=== PATIENT | female | born 1970 | race Caucasian/White ===

== ENCOUNTER 2017-12-04 13:12 | Emergency (ER) | payer OTHER ==
--- OUTSIDE RECORDS SUMMARY | 2017-12-04 13:14 | XMS REPORT | Clinical Summary ---
:1970 Author Organization [facility] Address [address] [place] [address] Care Team Providers Name Role Phone Santino Kaur MD Primary Care Provider Allergies Active Allergy Reactions Severity Noted Date Comments No Known Drug Allergies 01/06/2016 Current Medications Prescription Sig. Disp. Refills Start Date End Date Status estradiol (ESTRACE) 0.5 MG Take 0.5 mg by 1 05/03/2016 Active tablet mouth once daily. hydroCHLOROthiazide Take 25 mg by 5 06/02/2016 Active (HYDRODIURIL) 25 MG tablet mouth every morning. montelukast (SINGULAIR) 10 mg Take 10 mg by 5 05/26/2016 Active tablet mouth every morning. Active Problems Problem Noted Date Endometrial cancer 12/31/2015 Social History Tobacco Use Types Packs/Day Years Used Date Never Smoker Alcohol Use Drinks/Week oz/Week Comments Yes "one to two beers or a glass of wine per week" Sex Assigned at Date Recorded Not on file Last Filed Vital Signs Not on file Plan of Treatment Health Maintenance Due Date Last Done Comments CERVICAL CANCER SCREENING 06/02/2017 06/02/2014, 05/03/2013 INFLUENZA VACCINE 01/31/2018 Results Not on fileafter 12/03/2016 Insurance Payer Benefit Plan / Group Subscriber ID Type Phone Address [employer] PPO OPEN CHOICE xxxxxxxxxx PPO Work: [id number] [phone] [address] [place], [place] [address] [phone]Z Personal/Family Self 1970 Home: [address] [facility] [phone] [facility] [address] [place] [address]
[2017-12-04] MEDS ORDERED: ONDANSETRON 4 MG/2 ML VIAL ONE (13:46)
[2017-12-04] MEDS ORDERED: NA CHLORIDE 0.9% 1,000 ML ONE (13:46)
[2017-12-04] MEDS ORDERED: MORPHINE 4 MG/ML SYR ONE (13:46)
[2017-12-04 14:01] LABS: Absolute Lymphocytes (CBC) 2.6 K/uL (0.7-4.9); Absolute Monocytes 0.6 K/uL (0.1-1.3); Absolute Neutrophil 5.3 K/uL (1.8-8.0); Basophils % 0.6 % (0-1.3); Eosinophils % 2.7 % (0-4.4); Hematocrit 42.3 % (36.0-45.0); Lymphocytes % 29.5 % (15.3-44.8); MCH 27.6 pg (27.0-35.0); MCV 83.1 fL (80-100); MPV 9.1 fL (7.6-11.3); Monocytes % 6.3 % (3.3-12.3); RBC Red Blood Cell Count 5.09 M/uL (3.86-4.86)
--- NOTE | 2017-12-04 14:11 | RAD REPORT ---
EXAM DESCRIPTION: RAD - Chest Single View - 12/04/2017 2:03 pm CLINICAL HISTORY: Chest pain. COMPARISON: 10/17/2015 FINDINGS: Portable technique limits examination quality. The lungs are grossly clear. The heart is normal in size. No displaced fractures. IMPRESSION: No acute intrathoracic process suspected.
--- NOTE | 2017-12-04 14:23 | EKG ---
Test Date: 2017-12-04 Test Time: 13:29:51 Line Installer Trolley: JOSE MEASUREMENT RESULTS: Intervals: Rate: 71 WA: 150 QRSD: 94 QT: 436 QTc: 473 [place]: P: 45 WA: 150 QRS: -16 T: 76 INTERPRETIVE STATEMENTS: Sinus rhythm with premature atrial complexes Moderate voltage criteria for LVH, may be normal variant Borderline ECG No previous ECG available for comparison Electronically Signed On 12-04-17 14:22:54 CDT by Zane Puente
[2017-12-04 14:32] LABS: Bicarbonate 30 mEq/L (21-31); Glucose Level 101 mg/dL (65-120); Lipase 46 U/L (22-51); Potassium 3.4 mEq/L (3.6-5.0); Sodium Level 139 mEq/L (135-145)
[2017-12-04 14:38] LABS: ALT/SGPT 35 IU/L (10-60); AST/SGOT 34 IU/L (10-42); Albumin 4.2 g/dL (3.2-5.5); Alkaline Phosphatase 84 IU/L (42-121); BUN Blood Urea Nitrogen 10 mg/dL (6-20); Bilirubin Direct 0.1 mg/dL (0-0.2); Bilirubin Total 0.7 mg/dL (0.3-1.2); Creatine Phosphokinase 67 IU/L (22-269); Magnesium 2.3 mg/dL (1.8-2.5); Protein, Total 7.5 g/dL (6.0-8.3)
[2017-12-04 14:41] LABS: CKMB Creatine Kinase MB 1.6 ng/ml (0.3-4.0)
--- NOTE | 2017-12-04 15:13 | RAD REPORT ---
EXAM DESCRIPTION: CT - Chest For Pe Angio - 12/04/2017 2:54 pm CLINICAL HISTORY: Chest pain. COMPARISON: 09/23/2016 TECHNIQUE: CT angiogram of the pulmonary arteries was performed with MIP. All CT scans are performed using dose optimization technique as appropriate and may include automated exposure control or mA/KV adjustment according to patient size. FINDINGS: No evidence of pulmonary thromboembolism. No acute aortic finding demonstrated. The lungs are clear. No significant pericardial or pleural fluid. No concerning bony finding. Postsurgical changes are present in the upper abdomen. IMPRESSION: No evidence of pulmonary thromboembolism. No acute lung findings.
--- NOTE | 2017-12-04 15:20 | EDPHYS ---
Physician Documentation [facility] Name: Love Yarbrough Age: 47 yrs Sex: Female : 1970 Arrival Date: 12/04/2017 Time: 13:14 Bed 8 Private MD: Binu Sanchez E ED Physician Aryan Osborne HPI: 12/04 13:40 This 47 yrs old Female presents to ER via Ambulatory with complaints of Chest anant Pain, Numbness Of Arm. 13:40 The patient or guardian reports chest pain that is located primarily in the substernal anant area. Onset: just prior to arrival, this morning. The pain radiates to the left arm. Associated signs and symptoms: The patient has no apparent associated signs or symptoms. The chest pain is described as a heaviness, causing indigestion, a pressure. Severity of pain: At its worst the pain was moderate in the emergency department the pain is unchanged. The patient has not experienced similar symptoms in the past. 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 - Social history:: Smoking status: Patient/guardian denies using tobacco. - Ebola Screening: : No symptoms or risks identified at this time. - Family history:: not pertinent. ROS: 13:40 Constitutional: Negative for fever, chills, and weight loss, Eyes: Negative for injury, anant pain, redness, and discharge, ENT: Negative for injury, pain, and discharge, Neck: Negative for injury, pain, and swelling, Respiratory: Negative for shortness of breath, cough, wheezing, and pleuritic chest pain, Abdomen/GI: Negative for abdominal pain, nausea, vomiting, diarrhea, and constipation, Back: Negative for injury and pain, : Negative for injury, bleeding, discharge, and swelling, MS/Extremity: Negative for injury and deformity, Skin: Negative for injury, rash, and discoloration, Neuro: Negative for headache, weakness, numbness, tingling, and seizure, Psych: Negative for depression, anxiety, suicide ideation, homicidal ideation, and hallucinations, Allergy/Immunology: Negative for hives, rash, and allergies, Endocrine: Negative for neck swelling, polydipsia, polyuria, polyphagia, and marked weight changes, Hematologic/Lymphatic: Negative for swollen nodes, abnormal bleeding, and unusual bruising. 13:40 Cardiovascular: Positive for chest pain. Exam: 13:40 Constitutional: This is a well developed, well nourished patient who is awake, alert, anant and in no acute distress. Head/Face: Normocephalic, atraumatic. Eyes: Pupils equal round and reactive to light, extra-ocular motions intact. Lids and lashes normal. Conjunctiva and sclera are non-icteric and not injected. Cornea within normal limits. Periorbital areas with no swelling, redness, or edema. ENT: Nares patent. No nasal discharge, no septal abnormalities noted. Tympanic membranes are normal and external auditory canals are clear. Oropharynx with no redness, swelling, or masses, exudates, or evidence of obstruction, uvula midline. Mucous membranes moist. Neck: Trachea midline, no thyromegaly or masses palpated, and no cervical lymphadenopathy. Supple, full range of motion without nuchal rigidity, or vertebral point tenderness. No Meningismus. Chest/axilla: Normal chest wall appearance and motion. Nontender with no deformity. No lesions are appreciated. Cardiovascular: Regular rate and rhythm with a normal S1 and S2. No gallops, murmurs, or rubs. Normal PMI, no JVD. No pulse deficits. Respiratory: Lungs have equal breath sounds bilaterally, clear to auscultation and percussion. No rales, rhonchi or wheezes noted. No increased work of breathing, no retractions or nasal flaring. Abdomen/GI: Soft, non-tender, with normal bowel sounds. No distension or tympany. No guarding or rebound. No evidence of tenderness throughout. Back: No spinal tenderness. No costovertebral tenderness. Full range of motion. Skin: Warm, dry with normal turgor. Normal color with no rashes, no lesions, and no evidence of cellulitis. MS/ Extremity: Pulses equal, no cyanosis. Neurovascular intact. Full, normal range of motion. Neuro: Awake and alert, GCS 15, oriented to person, place, time, and situation. Cranial nerves II-XII grossly intact. Motor strength 5/5 in all extremities. Sensory grossly intact. Cerebellar exam normal. Normal gait. Psych: Awake, alert, with orientation to person, place and time. Behavior, mood, and affect are within normal limits. 14:00 Musculoskeletal/extremity: Tendon exam: DVT Exam: No signs of deep vein thrombosis. no anant pain, no swelling, no tenderness, negative Homans' sign noted on exam, no appreciated bluish discoloration, no erythema, no increased warmth. Vital Signs: 13:20 BP 165 / 109; Pulse 80; Resp 16 S; Temp 98.6(TE); Pulse Ox 97% on R/A; Weight 149.69 kg aa5 (R); Height 5 ft. 7 in. (170.18 cm) (R); Pain 8/10; 14:26 BP 162 / 97; Pulse 63; Resp 18; Pulse Ox 98% on R/A; Pain 3/10; hb 15:30 BP 170 / 88; Pulse 64; Resp 15; Pulse Ox 100% on R/A; Pain 3/10; hb 13:20 Body Mass Index 51.68 (149.69 kg, 170.18 cm) aa5 MDM: 13:26 Patient medically screened. [facility] 13:40 Data reviewed: vital signs, nurses notes, lab test result(s), EKG, radiologic studies, [facility] CT scan. 12/04 13:39 Order name: Basic Metabolic Panel; Complete Time: 15: [facility] 12/04 13:39 Order name: BNP; Complete Time: 15: [facility] 12/04 13:39 Order name: CBC with Diff; Complete Time: 15: [facility] 12/04 13:39 Order name: Ckmb; Complete Time: 15: [facility] 12/04 13:39 Order name: CPK; Complete Time: 15: [facility] 12/04 13:39 Order name: LFT's; Complete Time: 15: [facility] 12/04 13:39 Order name: Magnesium; Complete Time: 15: [facility] 12/04 13:39 Order name: PT-INR; Complete Time: 15: [facility] 12/04 13:39 Order name: Ptt, Activated; Complete Time: 15: [facility] 12/04 13:39 Order name: Troponin (emerg Dept Use Only); Complete Time: 15:07 [facility] 12/04 13:39 Order name: Lipase; Complete Time: 15:07 [facility] 12/04 15:16 Order name: Ckmb [facility] 12/04 15:16 Order name: Creatine Phosphokinase [facility] 12/04 15:16 Order name: Troponin (emerg Dept Use Only) [facility] 12/04 13:39 Order name: XRAY Chest (1 view); Complete Time: 15:07 [facility] 12/04 13:39 Order name: EKG; Complete Time: 13:40 [facility] 12/04 13:39 Order name: Cardiac monitoring; Complete Time: 13:42 [facility] 12/04 13:39 Order name: EKG - Nurse/Tech; Complete Time: 13:42 [facility] 12/04 13:39 Order name: IV Saline Lock; Complete Time: 13:42 [facility] 12/04 13:39 Order name: Labs collected and sent; Complete Time: 13:52 [facility] 12/04 13:39 Order name: O2 Per Protocol; Complete Time: 13:42 [facility] 12/04 13:39 Order name: O2 Sat Monitoring; Complete Time: 13:42 [facility] 12/04 13:39 Order name: Urine Dipstick-Ancillary (obtain specimen); Complete Time: 16:18 [facility] 12/04 13:39 Order name: CT Chest For PE Angio; Complete Time: 15:16 [facility] 12/04 15:50 Order name: Urine Dipstick--Ancillary (enter results) bd Administered Medications: 13:52 Drug: NS 0.9% 1000 ml Route: IV; Rate: 1 bolus; Site: right antecubital; hb 16:18 Follow up: Response: No adverse reaction; IV Status: Completed infusion hb 13:52 Drug: morphine 2 mg Route: IVP; Site: right antecubital; hb 14:15 Follow up: Response: No adverse reaction hb 13:53 Drug: Zofran 4 mg Route: IVP; Site: right antecubital; hb 14:30 Follow up: Response: No adverse reaction hb 14:40 Drug: morphine 2 mg Route: IVP; Site: right antecubital; hb 15:46 Follow up: Response: No adverse reaction hb 15:46 Drug: Potassium Chloride 20 mEq Route: PO; hb 16:18 Follow up: Response: No adverse reaction hb Disposition: 12/04/17 15:19 Discharged to Home. Impression: Chest pain on breathing, Other chest pain, Hypokalemia, Dyspnea. - Condition is Stable. - Discharge Instructions: Nonspecific Chest Pain, Chest Wall Pain, Costochondritis, Potassium Content of Foods, Costochondritis, [id number], Aspirin and Your Heart. - Prescriptions for Tylenol- Codeine #3 300-30 mg Oral Tablet - take 2 tablet by ORAL route every 6 hours As needed; 30 tablet. - Medication Reconciliation Form, Thank You Letter, Antibiotic Education, Prescription Opioid Use form. - Follow up: Binu Sanchez MD; When: 2 - 3 days; Reason: Recheck today's complaints, Continuance of care, Re-evaluation by your physician. - Problem is new. - Symptoms have improved. Signatures: Dispatcher [employer] EDMS Aryan Osborne MD MD cha Calderon, Audri RN RN aa5 Devi Garcia RN RN Jacklyn Hernandez RN RN hb Corrections: (The following items were deleted from the chart) 16:20 15:19 12/04/2017 15:19 Discharged to Home. Impression: Chest pain on breathing; Other hb chest pain; Hypokalemia; Dyspnea. Condition is Stable. Forms are Medication Reconciliation Form, Thank You Letter, Antibiotic Education, Prescription Opioid Use. Follow up: Binu Sanchez; When: 2 - 3 days; Reason: Recheck today's complaints, Continuance of care, Re-evaluation by your physician. Problem is new. Symptoms have improved. [facility] 16:34 16:20 12/04/2017 15:19 Discharged to Home. Impression: Chest pain on breathing; Other ph chest pain; Hypokalemia; Dyspnea. Condition is Stable. Discharge Instructions: Nonspecific Chest Pain, Chest Wall Pain, Costochondritis, Potassium Content of Foods, Costochondritis, [id number], Aspirin and Your Heart. Prescriptions for Tylenol-Codeine #3 300-30 mg Oral Tablet - take 2 tablet by ORAL route every 6 hours As needed; 30 tablet. and Forms are Medication Reconciliation Form, Thank You Letter, Antibiotic Education, Prescription Opioid Use. Follow up: Binu Sanchez; When: 2 - 3 days; Reason: Recheck today's complaints, Continuance of care, Re-evaluation by your physician. Problem is new. Symptoms have improved. hb
--- NOTE | 2017-12-04 15:20 | ER ---
Nurse's Notes [facility] Name: Love Yarbrough Age: 47 yrs Sex: Female : 1970 Arrival Date: 12/04/2017 Time: 13:14 Bed 8 Private MD: Binu Sanchez E Diagnosis: Chest pain on breathing;Other chest pain;Hypokalemia;Dyspnea Presentation: 12/04 13:18 Presenting complaint: Patient states: left-sided chest pain and left arm pain that aa5 began today at 1000. Pt also reports tingling and numbness to left arm. Reports SOB and nausea. 13:18 Transition of care: patient was not received from another setting of care. Onset of aa5 symptoms was December 04, 2017. Risk Assessment: Do you want to hurt yourself or someone else? Patient reports no desire to harm self or others. Initial Sepsis Screen: Does the patient meet any 2 criteria? No. Patient's initial sepsis screen is negative. Does the patient have a suspected source of infection? No. Patient's initial sepsis screen is negative. Care prior to arrival: None. 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 - Social history:: Smoking status: Patient/guardian denies using tobacco. - Ebola Screening: : No symptoms or risks identified at this time. - Family history:: not pertinent. Screenin:40 Abuse screen: Denies threats or abuse. Denies injuries from another. Nutritional hb screening: No deficits noted. Tuberculosis screening: No symptoms or risk factors identified. Fall Risk None identified. Assessment: 13:40 General: Appears in no apparent distress. uncomfortable, Behavior is cooperative, hb crying. Pain: Complains of pain in chest Pain radiates to back and left arm Pain currently is 9 out of 10 on a pain scale. Pain began suddenly, 1 hour ago. Neuro: Level of Consciousness is awake, alert, obeys commands, Oriented to person, place, time, situation. Cardiovascular: Heart tones S1 S2 present Capillary refill < 3 seconds Patient's skin is warm and dry. Respiratory: Airway is patent Trachea midline Respiratory effort is even, unlabored, Respiratory pattern is regular, symmetrical, Breath sounds are clear bilaterally. GI: Reports nausea. : No signs and/or symptoms were reported regarding the genitourinary system. EENT: No signs and/or symptoms were reported regarding the EENT system. Derm: No signs and/or symptoms reported regarding the dermatologic system. Skin is intact, is healthy with good turgor, Skin is pink, warm \T\ dry. Musculoskeletal: No signs and/or symptoms reported regarding the musculoskeletal system. 14:30 Reassessment: Patient appears in no apparent distress at this time. Patient and/or hb family updated on plan of care and expected duration. Pain level reassessed. Patient is alert, oriented x 3, equal unlabored respirations, skin warm/dry/pink. 15:30 Reassessment: Patient appears in no apparent distress at this time. No changes from hb previously documented assessment. Patient and/or family updated on plan of care and expected duration. Pain level reassessed. Patient is alert, oriented x 3, equal unlabored respirations, skin warm/dry/pink. Vital Signs: 13:20 BP 165 / 109; Pulse 80; Resp 16 S; Temp 98.6(TE); Pulse Ox 97% on R/A; Weight 149.69 kg aa5 (R); Height 5 ft. 7 in. (170.18 cm) (R); Pain 8/10; 14:26 BP 162 / 97; Pulse 63; Resp 18; Pulse Ox 98% on R/A; Pain 3/10; hb 15:30 BP 170 / 88; Pulse 64; Resp 15; Pulse Ox 100% on R/A; Pain 3/10; hb 13:20 Body Mass Index 51.68 (149.69 kg, 170.18 cm) aa5 ED Course: 13:14 Patient arrived in ED. mr 13:15 Binu Sanchez MD is Private Physician. mr 13:18 Arm band placed on Patient placed in an exam room, on a stretcher. aa5 13:26 Aryan Osborne MD is Attending Physician. anant 13:27 Triage completed. aa5 13:40 Patient has correct armband on for positive identification. Placed in gown. Bed in low hb position. Call light in reach. Side rails up X 1. environmental monitoring technician on. Pulse ox on. NIBP on. 13:40 Inserted saline lock: 20 gauge in right antecubital area, using aseptic technique. hb Blood collected. Patient maintains SpO2 saturation greater than 95% on room air. 13:42 Jacklyn Hernandez, JEREMIAH is Primary Nurse. hb 14:01 X-ray completed. Portable x-ray completed in exam room. Patient tolerated procedure jb2 well. 14:02 XRAY Chest (1 view) In Process Unspecified. EDMS 14:54 CT completed. Patient tolerated procedure well. Patient moved back from CT. mw3 14:54 CT Chest For PE Angio In Process Unspecified. EDMS 15:17 Binu Sanchez MD is Referral Physician. anant 16:19 No provider procedures requiring assistance completed. IV discontinued, intact, hb bleeding controlled, No redness/swelling at site. Pressure dressing applied. Administered Medications: 13:52 Drug: NS 0.9% 1000 ml Route: IV; Rate: 1 bolus; Site: right antecubital; hb 16:18 Follow up: Response: No adverse reaction; IV Status: Completed infusion hb 13:52 Drug: morphine 2 mg Route: IVP; Site: right antecubital; hb 14:15 Follow up: Response: No adverse reaction hb 13:53 Drug: Zofran 4 mg Route: IVP; Site: right antecubital; hb 14:30 Follow up: Response: No adverse reaction hb 14:40 Drug: morphine 2 mg Route: IVP; Site: right antecubital; hb 15:46 Follow up: Response: No adverse reaction hb 15:46 Drug: Potassium Chloride 20 mEq Route: PO; hb 16:18 Follow up: Response: No adverse reaction hb Outcome: 15:19 Discharge ordered by . anant 16:19 Discharged to home ambulatory. hb 16:19 Condition: stable 16:19 Discharge instructions given to patient, Instructed on discharge instructions, follow up and referral plans. medication usage, Demonstrated understanding of instructions, follow-up care, medications, Prescriptions given X 1. 16:20 Patient left the ED. hb 16:34 Patient left the ED. ph Signatures: Dispatcher [employer] Aryan Colón MD MD cha Rivera, Maria mr Marie, Trey jb2 Rhianna Thurman RN RN [email or web address] Devi Garcia RN RN ph Jacklyn Hernandez RN RN Homer, Moira 3
[2017-12-04] MEDS ORDERED: POTASSIUM CL SA 10 MEQ TAB PO ONE (15:46)
[2017-12-04 16:02] LABS: CKMB Creatine Kinase MB 0.8 ng/ml (0.3-4.0)
[2017-12-04 16:05] LABS: Urine Blood NEGATIVE (NEG); Urine Glucose NEGATIVE (NEG); Urine Protein NEGATIVE (NEG); Urine Specific Gravity 1.015 (1.005-1.030)
== END 2017-12-04 16:34 | disposition home or self-care (01) ==
LOC: ER 13:12
DX: R07.89 Other chest pain (principal); E87.6 Hypokalemia; R06.00 Dyspnea, unspecified; I10 Essential (primary) hypertension; Z85.42 Personal history of malignant neoplasm of other parts of uterus
CPT/HCPCS: 36415; 71045; 71275; 80048; 80076; 81003; 82550; 82553; 83690; 83735; 83880; 84484; 85025; 85610; 85730; 93005; 96361; 96374; 96375; 99285; J2405; J7030; Q9967